=== PATIENT | female | born 1945 | race Caucasian/White ===

== ENCOUNTER 2019-06-08 10:33 | Observation (INO) | payer MEDICARE, OTHER ==
--- OUTSIDE RECORDS SUMMARY | 2019-06-08 10:51 | XMS REPORT | Continuity of Care Document ---
:1945 External Reference #:[id number] Author Name Malachi Hammond M.D. (transmitted by agent of provider Rody Khan) Address [address] [place] [address] Care Team Providers Name Role Phone Zonia Portillo MD - Internal Medicine Care Team Information Out Of Town Collection Clerk Problems Active Problems Provider Date Allergic contact dermatitis due to plants, Eduardo Hutchins M.D. Onset: 01/2018 except food Coronary arteriosclerosis Cordell Francisco M.D. Onset: 02/22/2013 Chronic ischemic heart disease Cordell Francisco M.D. Onset: 02/22/2013 Social History Type Date Description Comments Sex Unknown Tobacco Use Start: Unknown Never Smoked Cigarettes ETOH Use Never used alcohol Recreational Drug Use Denies Drug Use Tobacco Use Start: Unknown Patient has never smoked Smoking Status Reviewed: 06/08/19 Patient has never smoked Exercise Type/Frequency Exercises rarely Allergies, Adverse Reactions, Alerts Active Allergies Reaction Severity Comments Date Eggs unsure 12/18/2010 Penicillin sleep walking 12/18/2010 Ticlid turned red Severe 12/18/2010 Poison Kamila rash Severe 02/24/2012 Poison [place] rash Mild 02/24/2012 Flu Virus Vaccine 11/06/2014 Medications Active Medications SIG Qnty Indications Ordering Date Provider Aspirin 1 po qd I25.10 Jimy Starks 11/13/2009 81mg Tablets Herve Garcia,FACP Amlodipine Besylate 1 by mouth 90tabs I25.10 Cordell Starks 2.5mg Tablets every day Herve Francisco Ramipril 1 cap by mouth 90caps I25.10 Cordell Starks 10mg Capsules every day Brand, Herve Crestor 1 by mouth 90tabs I25.10 Cordell D. 10mg Tablets every evening Brand, M.DMarc Hydrochlorothiazide 1 by mouth 90caps I25.10 Cordell D. 12.5mg every day Brand, M.DMarc Capsules One-Daily Multi Vitamins 1 po qd Unknown Tablets Calcium 600 + D 1 po qd 60tabs Unknown [id number] Tablets Metamucil prn Unknown 43% Powder Tylenol 2 tablets Unknown 325mg Capsules every 6 hours two or three times a day as needed for pain Immunizations Description No Information Available Vital Signs Date Vital Result Comment 06/08/2019 8:48am Height 60 inches 5'0" Weight 158.00 lb pt states Heart Rate 73 /min BP Systolic 130 mmHg BP Diastolic 60 mmHg Respiratory Rate 14 /min Body Temperature 97.3 F Pain Level 9 BMI (Body Mass Index) 30.9 kg/m2 03/13/2019 3:22pm Height 60.5 inches 5'0.50" Weight 157.00 lb Heart Rate 56 /min BP Systolic 174 mmHg BP Diastolic 66 mmHg BP Systolic Recheck 140 mmHg BP Diastolic Recheck 78 mmHg Body Temperature 97.8 F O2 % BldC Oximetry 98 % BMI (Body Mass Index) 30.2 kg/m2 Results Description No Information Available Procedures Date Code Description Status 03/08/2019 67664 EKG Tracing & Interpretation Completed 02/24/2019 [id number] Mammogram Completed 02/22/2018 [id number] Mammogram Completed 02/18/2017 [id number] Mammogram Completed 02/17/2016 [id number] Mammogram Completed 02/14/2015 [id number] Mammogram Completed 02/13/2014 [id number] Mammogram Completed 02/07/2013 [id number] Bone Mineral Density Test Completed 02/07/2013 [id number] Mammogram Completed 11/10/2011 [id number] Mammogram Completed 02/09/2011 [id number] Colonoscopy Completed 01/08/2011 [id number] Bone Mineral Density Test Completed 11/07/2010 [id number] Mammogram Completed 11/05/2009 [id number] Mammogram Completed 10/31/2008 [id number] Mammogram Completed 10/31/2008 [id number] Bone Mineral Density Test Completed 10/28/2007 [id number] Mammogram Completed Medical Devices Description No Information Available Encounters Type Date Location Provider Dx Diagnosis Office Visit 03/08/2019 [facility] Cordell Starks I25.10 Athscl heart 2:30p Of Gio Francisco M.D. disease of [place] coronary artery w/o ang pctrs I10 Essential (primary) hypertension R00.1 Bradycardia, unspecified Assessments Date Code Description Provider 06/08/2019 S92.342A Displaced fracture of fourth metatarsal Malachi Hammond M.D. bone, left foot, initial encounter for closed fracture 06/08/2019 S92.321A Displaced fracture of second metatarsal Malachi Hammond M.D. bone, right foot, initial encounter for closed fracture 03/13/2019 Z00.00 Encounter for general adult medical Marty Pacheco NP examination without abnormal findings 03/13/2019 I10 Essential (primary) hypertension Marty Pacheco NP 03/13/2019 I25.10 Atherosclerotic heart disease of [place] Marty Pacheco NP coronary artery without angina pectoris 03/08/2019 I25.10 Atherosclerotic heart disease of [place] Cordell Francisco M.D. coronary artery without angina pectoris 03/08/2019 I10 Essential (primary) hypertension Cordell Francisco M.D. 03/08/2019 R00.1 Bradycardia Cordell Francisco M.D. Plan of Treatment 06/08/2019 - Malachi Hammond M.D.S92.342A Displaced fracture of fourth metatarsal bone, left foot, initial encounter for closed fractureFollow up:1 weekS92.321A Displaced fracture of second metatarsal bone, right foot, initial encounter for closed fracture Functional Status Description No Information Available Mental Status Description No Information Available Referrals Description No Information Available
[2019-06-08 12:16] LABS: ABS Basophils 0.1 10^3/ul (0-0.2); ABS Eosinophils 0.1 10^3/ul (0-0.6); ABS Monocytes 0.9 10^3/ul (0-0.8); ABS Neutrophils 6.6 10^3/ul (1.5-7.7); Eosinophil % 1.4 %; Hematocrit 37 % (35-47); Hemoglobin 12.5 g/dL (12.0-16.0); Lymphocyte % 20.5 %; Mean Corpuscular HGB Conc 34 g/dL (31-36); Mean Corpuscular Hemoglobin 31 pg (27-31); Mean Corpuscular Volume 91 fL (80-97); Platelet Count 158 10^3/uL (150-450); Red Blood Count 4.07 10^6 /uL (3.70-4.87); Red Cell Distribution Width 13 % (10-15); White Blood Count 9.6 10^3/uL (3.5-10.8)
[2019-06-08] MEDS ORDERED: NS 0.9% 1000 ML** 1,000 ML IV ONE (12:19)
[2019-06-08 12:33] LABS: Albumin 4.2 g/dL (3.2-5.2); Albumin/Globulin Ratio 1.7 (1-3); BUN/Creatinine Ratio 27.4 (8-20); Calcium 10.5 mg/dL (8.6-10.3); EGFR Non-African American 50.4 (>60); Globulin 2.5 g/dL (2-4); Magnesium 1.7 mg/dL (1.9-2.7); Potassium 4.2 mmol/L (3.5-5.0); Total Bilirubin 0.6 mg/dL (0.2-1.0); Total Protein 6.7 g/dL (6.4-8.9)
[2019-06-08 12:34] LABS: Troponin I 0.01 ng/mL (<0.03)
[2019-06-08 12:56] LABS: TSH (Thyroid Stimulating Horm) 2.21 mcIU/mL (0.34-5.60)
--- NOTE | 2019-06-08 13:42 | ED ---
Complex/Multi-Sys Presentation - HPI Summary HPI Summary: Patient is a 74 y/o F presenting to the ED for a chief complaint of syncopal episode and left foot fracture on the night of 06/07/19. Patient is present with her . Patient states that after she took a shower on 06/07/19, she walked to her sink and had a syncopal episode, falling on her left side. She notes having a " hot" sensation prior to the syncopal episode. Patient currently complains of headache over the right forehead, a bruise on the left side of the face, neck pain, and decreased ROM of the left foot. Patient denies chest pain, shortness of breath, lightheadedness, or dizziness. Patient was seen by Dr. Hammond after the fall who placed a dressing on the left foot and calf. PMHx is significant for [place] in 1996, but she denies a history of DM or HTN. She has a history of 3 stent placements. She denies tobacco use. She does not take blood thinners. - History Of Current Complaint Chief Complaint: EDSyncope Time Seen by Provider: 06/08/19 12:06 Hx Obtained From: Patient Onset/Duration: Sudden Onset, Lasting Hours, Still Present Timing: Constant Severity Currently: Moderate Severity Initially: Moderate Associated Signs And Symptoms: Positive: Headache. Negative: Dizziness, SOB, Chest Pain - Allergies/Home Medications Allergies/Adverse Reactions: Allergies Allergy/AdvReac Type Severity Reaction Status Date / Time egg Allergy Unknown Verified 06/08/19 10:42 Reaction Details Penicillins Allergy Hallucinati Verified 06/08/19 10:42 ons ticlopidine [From Ticlid] Allergy Rash Verified 06/08/19 10:42 Home Medications: Home Medications Amlodipine 2.5 mg TAB (NF) 2.5 mg PO DAILY 06/08/19 [History Confirmed 06/08/19] Aspirin EC TAB* [Ecotrin EC Low Dose 81 MG*] 81 mg PO DAILY 06/08/19 [History Confirmed 06/08/19] Calcium Carb, Citrate/Vit D3 [Calcium + D3 ER Tablet] 1 each PO DAILY 06/08/19 [ History Confirmed 06/08/19] Hydrochlorothiazide TAB* [Hydrodiuril TAB*] 12.5 mg PO DAILY 06/08/19 [History Confirmed 06/08/19] Ramipril CAP* [Altace CAP*] 10 mg PO DAILY 06/08/19 [History Confirmed 06/08/19] Rosuvastatin (NF) [Crestor (NF)] 10 mg PO DAILY 06/08/19 [History Confirmed ] PMH/Surg Hx/FS Hx/Imm Hx Previously Healthy: Yes Endocrine/Hematology History: Denies: Hx Anticoagulant Therapy, Hx Diabetes Cardiovascular History: Reports: Hx Myocardial Infarction Denies: Hx Hypertension Sensory History: Denies: Hx Legally Blind, Hx Deafness Opthamlomology History: Denies: Hx Legally Blind EENT History: Denies: Hx Deafness - Cancer History Hx Chemotherapy: No Hx Radiation Therapy: No - Surgical History Surgical History: Yes Surgery Procedure, Year, and Place: APPY Infectious Disease History: No Infectious Disease History: Denies: Traveled Outside the [place] in Last 30 Days - Family History Known Family History: Negative: Diabetes, Seizure Disorder - Social History Occupation: Retired Lives: With Family Alcohol Use: None Hx Substance Use: No Substance Use Type: Reports: None Hx Tobacco Use: No Smoking Status (MU): Never Smoked Tobacco Review of Systems Negative: Chest Pain Negative: Shortness Of Breath Positive: Decreased ROM - Left foot. Negative: Myalgia - Neck pain Positive: Bruising - Left side of the face Neurological: Other - Negative dizziness or lightheadedness Positive: Headache, Syncope All Other Systems Reviewed And Are Negative: Yes Physical Exam - Summary Physical Exam Summary: Constitutional: Well-developed, Well-nourished, Alert. (-) Distressed Skin: Warm, Dry HENT: Normocephalic; Atraumatic Eyes: Conjunctiva normal Neck: Musculoskeletal ROM normal neck. (-) JVD, (-) Stridor, (-) Tracheal deviation Cardio: Rhythm regular, rate normal, Heart sounds normal; Intact distal pulses; The pedal pulses are 2+ and symmetric. Radial pulses are 2+ and symmetric. (-) Murmur Pulmonary/Chest wall: Effort normal. (-) Respiratory distress, (-) Wheezes, (-) Rales Abd: Soft, (-) tenderness, (-) Distension, (-) Guarding, (-) Rebound Musculoskeletal: (-) Edema. Left foot/ankle splinted. Lymph: (-) Cervical adenopathy Neuro: Alert, Oriented x3 Psych: Mood and affect Normal Triage Information Reviewed: Yes Vital Signs On Initial Exam: Initial Vitals Temp Pulse Resp BP Pulse Ox 98.2 F 61 20 146/77 98 06/08/19 10:36 06/08/19 10:36 06/08/19 10:36 06/08/19 10:36 06/08/19 10:36 Vital Signs Reviewed: Yes Procedures - Sedation Patient Received Moderate/Deep Sedation with Procedure: No Diagnostics - Vital Signs Vital Signs Temp Pulse Resp BP Pulse Ox 06/08/19 10:36 98.2 F 61 20 146/77 98 - Laboratory Lab Results: Lab Results 06/08/19 06/08/19 06/08/19 Range/Units 12:07 12:07 12:08 WBC 9.6 (3.5-10.8) 10^3/uL RBC 4.07 (3.70-4.87) 10^6 /uL Hgb 12.5 (12.0-16.0) g/dL Hct 37 (35-47) % MCV 91 (80-97) fL MCH 31 (27-31) pg MCHC 34 (31-36) g/dL RDW 13 (10-15) % Plt Count 158 (150-450) 10^3/uL MPV 10.0 (7.4-10.4) fL Neut % (Auto) 68.6 % Lymph % (Auto) 20.5 % Whiteside % (Auto) 8.9 % Eos % (Auto) 1.4 % Baso % (Auto) 0.6 % Absolute Neuts (auto) 6.6 (1.5-7.7) 10^3/ul Absolute Lymphs (auto) 2.0 (1.0-4.8) 10^3/ul Absolute Monos (auto) 0.9 H (0-0.8) 10^3/ul Absolute Eos (auto) 0.1 (0-0.6) 10^3/ul Absolute Basos (auto) 0.1 (0-0.2) 10^3/ul Absolute Nucleated RBC 0.0 10^3/ul Nucleated RBC % 0.0 Sodium 141 (135-145) mmol/L Potassium 4.2 (3.5-5.0) mmol/L Chloride 106 (101-111) mmol/L Carbon Dioxide 26 (22-32) mmol/L Anion Gap 9 (2-11) mmol/L BUN 29 H (6-24) mg/dL Creatinine 1.06 H (0.51-0.95) mg/dL Est GFR ( Amer) 61.0 (>60) Est GFR (Non-Af Amer) 50.4 (>60) BUN/Creatinine Ratio 27.4 H (8-20) Glucose 110 H (70-100) mg/dL Lactic Acid 1.5 (0.5-2.0) mmol/L Calcium 10.5 H (8.6-10.3) mg/dL Magnesium 1.7 L (1.9-2.7) mg/dL Total Bilirubin 0.60 (0.2-1.0) mg/dL AST 22 (13-39) U/L ALT 13 (7-52) U/L Alkaline Phosphatase 67 (34-104) U/L Troponin I 0.01 (<0.03) ng/mL Total Protein 6.7 (6.4-8.9) g/dL Albumin 4.2 (3.2-5.2) g/dL Globulin 2.5 (2-4) g/dL Albumin/Globulin Ratio 1.7 (1-3) TSH 2.21 (0.34-5.60) mcIU/mL Result Diagrams: 06/08/19 12:07 06/08/19 12:07 Lab Statement: Any lab studies that have been ordered have been reviewed, and results considered in the medical decision making process. - EKG 12:09 Cardiac Rate: NL - 56 BPM EKG Rhythm: Sinus Rhythm ST Segment: Normal Ectopy: None Summary of EKG Findings: EKG at 12:09 shows normal sinus rhythm with 56 BPM, PVCs noted, slight ST depression in V4-V6 and lead II. Dr. Dodge has reviewed and interpreted this EKG. Complex Multi-Symp Course/Dx Course Of Treatment: Patient is a 74 y/o F presenting to the ED for a chief complaint of syncopal episode and left foot fracture on the night of 06/07/19. Patient is present with her . Patient states that after she took a shower on 06/07/19, she walked to her sink and had a syncopal episode, falling on her left side. She notes having a " hot" sensation prior to the syncopal episode. Patient currently complains of headache over the right forehead, a bruise on the left side of the face, neck pain, and decreased ROM of the left foot. Patient denies chest pain, shortness of breath, lightheadedness, or dizziness. Patient was seen by Dr. Hammond after the fall who placed a dressing on the left foot and calf. PMHx is significant for [place] in 1996, but she denies a history of DM or HTN. She has a history of 3 stent placements. She denies tobacco use. She does not take blood thinners. On exam, left foot/ankle splinted. In the ED course, patient was given IV fluids and magnesium sulfate 1 gm IV. Laboratory abnormal findings: absolute monos 0.9, BUN 29, creatinine 1.06, BUN/Creatinine ratio 27.4, glucose 110, calcium 10.5, magnesium 1.7. EKG at 12:09 shows normal sinus rhythm with 56 BPM, PVCs noted, slight ST depression in V4-V6 and lead II. At 14:03, Dr.Magdalena Yan reviewed the patients case and agrees to admit the patient to [facility]. Patient will be admitted to [facility] with a diagnosis of syncope and left foot fracture. - Diagnoses Provider Diagnoses: Syncope, Foot fracture, left - Physician Notifications Discussed Care Of Patient With: Oly Yan - At 14:03, Dr.Magdalena Yan reviewed the patients case and agrees to admit the patient to [facility]. Time Discussed With Above Provider: 14:03 Instructed by Provider To: Admit As Inpatient Discharge ED - Sign-Out/Discharge Documenting (check all that apply): Patient Departure - Admit - Discharge Plan Condition: Stable Disposition: ADMITTED TO [facility] Referrals: Marty Pacheco NP [Primary Care Provider] - - Billing Disposition and Condition Condition: STABLE Disposition: Admitted to [facility] - Attestation Statements Document Initiated by Scribe: Yes Documenting Scribe: Amanda Ochoa Provider For Whom Augustus is Documenting (Include Credential): Valdislav Dodge DO Scribe Attestation: Amanda Franco scribed for Vladislav Dodge DO on 06/08/19 at 1419. Scribe Documentation Reviewed: Yes Provider Attestation: The documentation as recorded by the scribe, Amanda Ochoa accurately reflects the service I personally performed and the decisions made by me, Vladislav Dodge, DO Status of [facility] Document: Viewed
[2019-06-08] MEDS ORDERED: Magnesium Sulfate 1 GM IV* 1 GM/100 ML BAG IV ONE (13:48)
[2019-06-08 15:14] LABS: Urine Appearance Clear; Urine Bilirubin Negative (Negative); Urine Blood Negative (Negative); Urine Color Yellow; Urine Glucose Negative (Negative); Urine Ketones Negative (Negative); Urine Nitrite Negative (Negative); Urine Protein Negative (Negative); Urine Specific Gravity 1.014 (1.010-1.030); Urine Urobilinogen Negative (Negative)
[2019-06-08] MEDS ORDERED: Acetaminophen TAB* 325 MG PO PRN (16:12)
[2019-06-08] MEDS ORDERED: oxyCODONE/Acetamin 5/325 MG* TAB PO PRN (16:12)
[2019-06-08] MEDS: NS 0.9% 1000 ML** 1,000 ML IV SCH (17:34)
--- NOTE | 2019-06-08 18:27 | HP ---
CC: Marty Pacheco NP; Dr. Hammond and Dr. Chung, Orthopedic Surgery; Dr. Francisco, Cardiology * HISTORY AND PHYSICAL: DATE OF ADMISSION: 06/08/19 PRIMARY CARE PROVIDER: Marty Pacheco NP CHIEF COMPLAINT: Status post fall/fainting and left foot fracture. HISTORY OF PRESENT ILLNESS: Jaylyn Yanez is a 74-year-old female with history of coronary artery disease, who had 3 stents in 1996, who also has history of resting bradycardia with heart rate going down to 38 at night, who presented to the hospital directly from orthopedic surgeon's office for syncopal episode. Ms. Yanez stated that last night before she had the dinner at 6 p.m., she was taking a shower. She made a winkler move to one side to grab her towel and then she had a syncopal episode. She lost consciousness and she woke up on the floor several seconds later. She fell hitting her left side and left foot. Since then, her left foot had been markedly swollen and in the morning she decided to call the orthopedic surgery department to come in for evaluation. When she was seen, she told Dr. Hammond's associate about the syncopal episode and she was directed to the ED for evaluation. The patient stated once again that she has history of chronic bradycardia and her heart rate at night goes down to 38. She has it recorded on her Apple watch. The CT of her left foot showed nondisplaced fractures to the base of the 2nd, 3rd and 4th metatarsals. Currently, she has the foot in a surgical boot, but unfortunately it is too painful and swollen for her to walk on it. She is going to be placed on overnight observation with diagnosis of syncope. Please note that she did not have any prodromal symptoms apart from that she felt a hot flash just before she had syncope. PAST MEDICAL HISTORY: 1. Coronary artery disease, status post 3 stents in 1996. 2. Bradycardia. 3. Hypertension. 4. Appendectomy in 1971. MEDICATIONS: Medications at home include: 1. Calcium with vitamin D 1 tablet daily. 2. Crestor 10 mg daily. 3. Hydrochlorothiazide 12.5 mg daily. 4. Aspirin 81 mg daily. 5. Ramipril 10 mg daily. 6. Amlodipine 2.5 mg daily. ALLERGIES: Eggs, PENICILLINS, TICLOPIDINE. FAMILY HISTORY: Mother with history of colon cancer, at the age of 84 secondary to it. On father's side, everyone had history of heart disease. Father from heart disease when he had his pacemaker placed at the age of 68. Two brothers of heart disease, one brother at 60, another one, who was diagnosed of heart disease at the age of 36, also at 60. SOCIAL HISTORY: The patient denies any tobacco, alcohol or drug use. She lives with her , who is her surrogate. Her 's name is Marty. She is a full code. REVIEW OF SYSTEMS: Please see history of present illness. All the remaining 12 systems were reviewed with the patient; and, apart from that the patient complains of bilateral chronic lower extremity edema, were negative PHYSICAL EXAMINATION GENERAL: The patient is is a very pleasant 74-year-old female who is in no acute distress. The patient is alert and oriented x3. VITAL SIGNS: Blood pressure 146/66, heart rate of 53 and regular, respiratory rate 20, oxygen saturation 97% on room air, temperature 98.2. HEENT: Head is atraumatic, normocephalic. Eyes: Pupils are equal and reactive to light and accommodation. Oropharynx clear. Mucosa moist. NECK: Supple. No JVD. No bruits bilaterally. RESPIRATORY: Clear to auscultation bilaterally. CARDIOVASCULAR: Regular rate and rhythm. No murmur. Bradycardia. ABDOMEN: Soft, nontender. Bowel sounds are present in all 4 quadrants. EXTREMITIES: There is bilateral ankle edema +1, nonpitting. The left foot is placed in an immobilizer. It is markedly edematous. It is wrapped in Solo bandages. They were not fully unwrapped for evaluation since they were just placed by the surgical service earlier on today. NEUROLOGIC: Cranial nerves II through XII grossly intact. Motor strength is 5/ 5 bilaterally. DIAGNOSTIC STUDIES/LAB DATA: EKG showed sinus bradycardia with heart rate of 53 beats per minute. Right bundle- branch block. No ST changes. CT of the left lower extremity, impression: "Nondisplaced fractures to the base of the 2nd, 3rd and 4th metatarsals." CT of brain is pending at the time of dictation. ASSESSMENT AND PLAN: 1. Syncope. The patient has history of resting bradycardia. She has been mildly hypertensive during her ED stay. I am unsure if her syncope is related to her bradycardia. Her TSH was also noted to be normal at 2.2. At this point , the patient is going to be placed on overnight observation on telemetry monitored bed. We will obtain a transthoracic echocardiogram in the morning. 2. Left foot fracture. We will ask Dr. Chung from Orthopedic Surgery to please see the patient in consultation. We will also ask Physical Therapy and Occupational Therapy to see the patient for safe discharge plan. 3. For DVT prophylaxis, the patient is going to be placed heparin subcutaneously. 4. For her hypertension, her outpatient medications including amlodipine and hydrochlorothiazide are going to be continued. 5. The patient's code status is full. Her surrogate is her . TIME SPENT: Approximately 65 minutes was spent on admission of this patient; more than half of that time was spent face to face with the patient during the interview and physical exam. [id number]/[facility] #: [id number] MTDD
[2019-06-08] MEDS: Heparin VIAL(*) 5000 UNITS/ML VIAL (FIVE THOUSAND) SUBCUT SCH (20:59)
[2019-06-09] MEDS: Heparin VIAL(*) 5000 UNITS/ML VIAL (FIVE THOUSAND) SUBCUT SCH ×2 (05:32→13:45)
[2019-06-09] MEDS ORDERED: Ramipril CAP* 10 MG PO SCH (09:00)
[2019-06-09] MEDS ORDERED: Aspirin EC TAB* 81 MG TAB.EC PO SCH (09:00)
[2019-06-09] MEDS ORDERED: amLODIPine TAB* 5 MG PO SCH (09:00)
[2019-06-09] MEDS ORDERED: Hydrochlorothiazide TAB* 25 MG PO SCH (09:00)
[2019-06-09] MEDS: NS 0.9% 1000 ML** 1,000 ML IV SCH (09:19)
[2019-06-09 13:00] VITALS: BP 140/51
--- NOTE | 2019-06-09 13:27 | ECHO ---
*[facility]* [place] [address] Fax #: [phone] Transthoracic Echocardiogram Patient: Jaylyn Yanez : 1945 Study Date: 06/09/2019 Age: 74 Gender: F HR: 53 bpm Height: 60 in /152.4 cm BSA: 1.77 m^2 Weight: 157.7 lb /71.7 kg BMI: 30.9 kg/m^2 *Construction Ironworker Helper: * Saima Good *Referring Physician: * Oly Yan *Reading Physician: * Mayur House MD Indications: Syncope. History: Bradycardia. Coronary artery disease. Risk factors: Hypertension. Conclusions Summary: - Left ventricle: Systolic function is normal. The estimated ejection fraction is 60-65%. Doppler parameters are consistent with abnormal left ventricular relaxation (grade 1 diastolic dysfunction). - Left atrium: The atrium is moderately dilated. - Tricuspid valve: There is mild regurgitation. - Pulmonary arteries: Systolic pressure is within the normal range, estimated to be 34 mm Hg. Study data: Transthoracic echocardiogram. Procedure: Transthoracic echocardiography was performed. Image quality was good. Complete 2D, spectral Doppler, and color flow Doppler. Location: Bedside. Patient status: Inpatient. Patient room number: 449-2. No prior study is available for comparison. Rhythm: Bradycardia. Findings Left ventricle: The cavity size is normal. Wall thickness is mildly increased. Systolic function is normal. The estimated ejection fraction is 60-65%. Wall motion is normal; there are no regional wall motion abnormalities. Doppler parameters are consistent with abnormal left ventricular relaxation (grade 1 diastolic dysfunction). Right ventricle: The cavity size is normal. Systolic function is normal. Ventricular septum: The outflow septum has a sigmoid appearance. Left atrium: The atrium is moderately dilated. Right atrium: The atrium is normal in size. Atrial septum: No defect or patent foramen ovale is identified. Mitral valve: The valve is structurally normal. There is no evidence of stenosis. There is trace regurgitation. Aortic valve: The valve is trileaflet. The leaflets are moderately calcified. Thickening, consistent with sclerosis. There is no evidence of stenosis. There is no significant regurgitation. Tricuspid valve: The leaflets are normal thickness. There is no evidence of stenosis. There is mild regurgitation. Pulmonic valve: The valve is structurally normal. There is no evidence of stenosis. There is trace regurgitation. Aorta: The aortic root appears normal. The aortic arch appears normal. Pericardium: There is no significant pericardial effusion. Pulmonary arteries: Systolic pressure is within the normal range, estimated to be 34 mm Hg. Systemic veins: Inferior vena cava: The vessel is normal in size. There is (>= 50%) respiratory change in the IVC dimension. Pulmonary veins: The Pulmonary veins appear normal. Measurements Left ventricle Value Ref Aortic valve Value Ref EMILY, LAX 3.9 cm 3.8 - 5.2 Peak v, S 1.89 m/sec ----- ESD, LAX 2.9 cm 2.2 - 3.5 VTI, S 44.8 cm ----- FS, LAX (L) 25 % 27 - 45 Mean grad, S 7.7 mm Hg ----- PW, ED, LAX (H) 1.3 cm 0.6 - 0.9 Peak grad, S 14.3 mm Hg ----- FS (L) 25 % 27 - 45 LVOT/AV, VTI ratio 0.69 ----- Mid-wall FS 9 % --------- MANOLO, VTI 1.95 cm^2 ----- PW, ED (H) 1.3 cm 0.6 - 0.9 MANOLO, Vmax 1.79 cm^2 ----- PW/ID, ED 0.34 --------- E', lat pretty, TDI (L) 8.4 cm/sec >=10.0 Mitral valve Value Re f E/e', lat pretty, TDI 13 --------- Peak E 1.1 m/sec ----- Peak A 0.47 m/sec ----- LVOT Value Ref Decel time 370 ms ----- Diam, S 1.90 cm --------- Peak grad, D 4.8 mm Hg ----- Area 2.8 cm^2 --------- Peak E/A ratio 2.36 ----- Peak matt, S 1.19 m/sec --------- VTI, S 30.8 cm --------- Pulmonic valve Value Ref Peak grad, S 6 mm Hg --------- Peak v, S 0.67 m/sec ----- Mean grad, S 3 mm Hg --------- Peak grad, S 1.8 mm Hg ----- Ventricular septum Value Ref Tricuspid valve Value Ref IVS, ED (H) 1.2 cm 0.6 - 0.9 TR peak v 2.69 m/sec <=2.8 Peak RV-RA grad, S 29 mm Hg ----- Right ventricle Value Ref EMILY, LAX 3.3 cm --------- Aortic root Value Ref EMILY major ax, A4C (L) 3.9 cm 5.9 - 8.3 Root diam 2.9 cm <4.0 Left atrium Value Ref Ascending aorta Value Ref LA ID 3.2 cm --------- AAo AP diam, S 3.1 cm ----- SI dim ES, LAX 3.2 cm --------- ML dim, A4C 4.9 cm --------- Aortic arch Value Ref SI dim, A4C 4.8 cm --------- Arch diam 2.7 cm ----- Vol, ES, 2-p 74 ml --------- Vol/bsa, ES, 2-p (H) 42 ml/m^2 16 - 34 Decending aorta Value Ref Davina peak matt 0.8 m/sec ----- Right atrium Value Ref SI dim, ES 4.7 cm 3.4 - 5.3 Inferior vena cava Value Ref ML dim, ES, A4C 3.8 cm 2.6 - 4.4 Diam 1.6 cm ----- SI dim, ES, A4C 4.7 cm 3.4 - 5.3 Legend: (L) and (H) corrina values outside specified reference range. Prepared and electronically signed by Mayur House MD 06/09/2019 13:26
--- NOTE | 2019-06-09 13:35 | CONSULT ---
Consult Consult: Patient fell at home 06/07/19, dx as syncopal event. Seen in clinic by Mnaish . DSD and wrap. CT ordered. Referred to hospital for w/u of syncopal event. Patient has weight borne only minimally. LLE: Compressive dressing in place, clean and intact. NVID CT scan: Non-displaced fractures of bases of 2nd, 3rd, 4th metatarsals. Selected Entries 06/09/19 11:15 Temperature 98.5 F Pulse Rate 68 Respiratory 20 Rate Blood Pressure 140/51 (mmHg) O2 Sat by Pulse 96 Oximetry Laboratory Tests 06/08/19 12:07 Hct 37 Assessment: 1. Non-displaced fractures of bases of left 2nd, 3rd, 4th metatarsals. 2. Syncope Plan: 1. Non-weight bearing left lower extremity 2. Continue current dressing 3. Follow up with Dr. Hammond as previously scheduled 4. Dispo per Hospitalist team
--- NOTE | 2019-06-09 23:13 | DS ---
CC: Marty Pacheco NP; Dr. aHmmond; Dr. Chung; Dr. Francisco * DISCHARGE SUMMARY: DATE OF ADMISSION: 06/08/19 DATE OF DISCHARGE: 06/09/19 PRIMARY CARE PROVIDER: Marty Pacheco NP DISCHARGE DIAGNOSES: 1. Syncope, probably multifactorial, likely vagal. 2. Left foot fracture after that occurred due to the syncope. SECONDARY DIAGNOSES: 1. History of coronary artery disease, status post 3 stents in 1996. 2. History of bradycardia. 3. Hypertension. 4. Appendectomy in the remote past. MEDICATIONS AT DISCHARGE: Unchanged from admission and include: 1. Calcium with vitamin D 1 tablet daily. 2. Crestor 10 mg daily. 3. Hydrochlorothiazide 12.5 mg daily. 4. Aspirin 81 mg daily. 5. Ramipril 10 mg daily. 6. Amlodipine 2.5 mg daily. CONSULTATIONS DURING THE HOSPITAL STAY: Included Dr. Chung from Orthopedic Surgery. DISPOSITION ON DISCHARGE: Home. CONDITION ON DISCHARGE: Stable. LABORATORY DATA AND STUDIES PERFORMED DURING HOSPITAL STAY: Laboratory data was obtained at admission and is unchanged. During the patient's hospital stay, the patient had a transthoracic echocardiogram obtained, which showed EF of 60% to 65% with abnormal left ventricular relaxation, grade 1 diastolic dysfunction with mild tricuspid regurgitation. Brain CT, impression: "No definite intracranial mass or hemorrhage noted." CT of the left lower extremity, impression: "Nondisplaced fractures through the base of the 2nd, 3rd, and 4th metatarsals." HOSPITAL COURSE: Jaylyn Yanez is a 74-year-old female with a history of resting bradycardia and coronary artery disease, who stated that on 06/07/19 before she ate dinner, had a hot shower at 6 p.m. When she stopped showering and wanted to grab the towel to dry herself off, suddenly she passed out. Before she passed out, she felt "a wave of heat." She stated that she was unconscious for several seconds. She alerted her by calling out that she could not get up. During the fall, she fell on the left side of her body and she fractured her left foot. Afterwards, she ate dinner and she decided to call the orthopedic surgeon's department in the morning to be evaluated for the left foot problem. She went to see the orthopedic surgeon Dr. Hmamond, who noted that the patient had a syncopal episode and the office sent the patient to the ED for evaluation. Here she was noted to have bradycardia but no other _ abnormalities. She did fracture her metatarsals as mentioned above. The left lower extremity was wrapped by the surgical associates and she was placed on overnight observation on telemetry monitored bed. Overnight, the patient did not have any marked bradycardia apart from heart rate in the 50s. A transesophageal echocardiogram was basically without any marked abnormalities. The CT of the brain was also unremarkable. After further discussion with the patient, the patient stated that she is usually eating dinner like around 4:30 p.m. but due to some other arrangements, she did not have dinner until after ___ ___ that day when she passed out. Due to I was evaluating the patient a day later, it is impossible to say if she was orthostatic at that point or hypoglycemic. She also had a hot shower right before her syncopal episode. She could have had a vagal episode. At this point, it appears that there are no abnormalities found for the patient to have to undergo any further evaluation , and she is going to be discharged home. Recommendation to follow up with her primary care provider in 4 to [address] Francisco in approximately 1 to 2 months. The patient also already has a scheduled appointment with Dr. Hammond within the next couple of weeks. PHYSICAL EXAMINATION AT THE TIME OF DISCHARGE: Blood pressure of 140/51, heart rate of 68 and regular, respiratory rate 20, oxygen saturation 96% on room air, temperature 98.5. General: The patient is a very pleasant 74-year-old female who is in no acute distress. The patient is alert and oriented x3. HEENT: Head atraumatic, normocephalic. Eyes: Pupils equal and reactive to light and accommodation. Oropharynx clear. Mucosa moist. Neck: Supple. No JVD. No bruit bilaterally. Cardiovascular: Regular rate and rhythm. No murmur. Respiratory: Clear to auscultation bilaterally. Abdomen: Soft, nontender. Bowel sounds present in all 4 quadrants. Extremities: The left foot is wrapped in Solo bandages and placed in a surgical boot. The left foot is edematous. The right ankle has no edema. Pulses are +2 bilaterally. There is no clubbing and no cyanosis. Neuro evaluation: Cranial nerves II through XII grossly intact. Motor strength is 5/5 bilaterally. Please note that this is a short summary of the patient's hospital stay. Please refer to further medical records for details. [id number][place] [place] [id number] MTDD
== END 2019-06-09 14:30 | disposition home or self-care (01) ==
LOC: ED 10:33 → MEDTELE 16:11
PROVIDERS: ADMIT Internal Medicine; ATTEND Internal Medicine
DX: R55 Syncope and collapse (principal); S92.902A Unspecified fracture of left foot, initial encounter for closed fracture; W19.XXXA Unspecified fall, initial encounter; Y92.9 Unspecified place or not applicable; I25.10 Atherosclerotic heart disease of native coronary artery without angina pectoris; Z95.5 Presence of coronary angioplasty implant and graft; R00.1 Bradycardia, unspecified; I10 Essential (primary) hypertension; Z79.82 Long term (current) use of aspirin; Z79.899 Other long term (current) drug therapy; M25.572 Pain in left ankle and joints of left foot; M79.89 Other specified soft tissue disorders
CPT/HCPCS: 36415; 70450; 80053; 81003; 83605; 83735; 84443; 84484; 85025; 93005; 93306; 96365; 96372; 99283; A9270-GY; G0378; J1644; J3475